=== PATIENT | female | born 1960 | race Caucasian/White ===

== ENCOUNTER 2017-10-13 19:37 | Emergency (ER) | payer SELFPAY ==
[2017-10-13 20:58] LABS: BASO # 0.1 10^3/uL (0.0-0.2); BASO % 1.2 % (0.0-1.0); EOS # 0.2 10^3/uL (0.0-0.50); EOS % 2.9 % (0.0-3.0); HEMATOCRIT 35.3 % (36.0-47.0); HEMOGLOBIN 12.2 g/dl (12.0-15.5); IMMATURE GRANULOCYTE % 0.2 % (0-3.0); LYMPH % 38.6 % (24.0-44.0); MEAN CORPUSCULAR HEMOGLOBIN 33.6 pg (27.0-33.0); MEAN CORPUSCULAR HGB CONC 34.6 g/dl (32.0-36.5); MEAN CORPUSCULAR VOLUME 97.2 fl (80.0-96.0); MONO # 0.7 10^3/uL (0.0-0.8); MONO % 12.5 % (0.0-5.0); NEUTROPHILS # 2.3 10^3/uL (1.8-7.7); NEUTROPHILS % 44.6 % (36.0-66.0); PLATELET COUNT, AUTOMATED 179 10^3/uL (150-450); RED BLOOD COUNT 3.63 10^6/uL (4.00-5.40); RED CELL DISTRIBUTION WIDTH 13.4 % (11.5-14.5); WHITE BLOOD COUNT 5.2 10^3/uL (4.0-10.0)
[2017-10-13] MEDS: MORPHINE 4 MG/ML 1ML VIAL/SYRINGE (J2270) IV (21:00)
[2017-10-13 21:09] LABS: INR 0.98; PROTHROMBIN TIME 13.1 SECONDS (12.4-14.5)
[2017-10-13 21:10] LABS: PARTIAL THROMBOPLASTIN TIME 29.2 SECONDS (26.8-37.9)
[2017-10-13 21:12] LABS: ANION GAP 10 MEQ/L (8-16); BLOOD UREA NITROGEN 19 MG/DL (7-18); CARBON DIOXIDE LEVEL 25 MEQ/L (21-32); CHLORIDE LEVEL 107 MEQ/L (98-107); CK-MB VALUE MASS 1.5 NG/ML (<3.6); CPK CREATINE PHOSPHOKINASE 74 U/L (26-192); CREATININE FOR GFR 0.76 MG/DL (0.55-1.30); ETHYL ALCOHOL (ETHANOL) 0.179 % (0.000-0.010); GLOMERULAR FILTRATION RATE > 60.0 (>51); GLUCOSE, FASTING 88 MG/DL (70-100); MB/CK RELATIVE INDEX 2.02 (< OR =4); POTASSIUM SERUM 3.6 MEQ/L (3.5-5.1); SODIUM LEVEL 142 MEQ/L (136-145); TROPONIN I < 0.02 NG/ML (< 0.10)
[2017-10-13] MEDS: KETOROLAC 30 MG/ML VIAL (J1885) IV (21:40)
[2017-10-13] MEDS ORDERED: ISOVUE-370 76% 100ML VIAL (Q9967) As Ordered (21:58)
== END 2017-10-14 01:14 | disposition home or self-care (01) ==
LOC: M ED 10-14 01:14
DX: R07.89 Other chest pain (principal); F10.929 Alcohol use, unspecified with intoxication, unspecified; R94.31 Abnormal electrocardiogram [ECG] [EKG]; I83.90 Asymptomatic varicose veins of unspecified lower extremity; F17.200 Nicotine dependence, unspecified, uncomplicated
CPT/HCPCS: Q9967

== ENCOUNTER 2020-09-22 05:56 | Day surgery (SDC) | payer BC, SELFPAY ==
[~2020-09-22] VITALS: Ht 180.3 cm; Wt 55.0 kg
[2020-09-22] MEDS ORDERED: GLUCAGON INJ 1MG VIAL IV STA (07:12)
[2020-09-22] MEDS ORDERED: LORazepam 2 MG/ML VIAL IV STA (07:25)
[2020-09-22 07:47] LABS: BASO % 0.8 % (0.0-1.0); EOS % 0.5 % (0.0-3.0); HEMATOCRIT 41.7 % (36.0-47.0); HEMOGLOBIN 14.2 g/dl (12.0-15.5); LYMPH # 0.8 10^3/uL (1.5-5.0); LYMPH % 20.8 % (24.0-44.0); MEAN CORPUSCULAR HEMOGLOBIN 33.9 pg (27.0-33.0); MEAN CORPUSCULAR HGB CONC 34.1 g/dl (32.0-36.5); MEAN CORPUSCULAR VOLUME 99.5 fl (80.0-96.0); MONO # 0.6 10^3/uL (0.0-0.8); MONO % 13.8 % (2.0-8.0); NEUTROPHILS # 2.5 10^3/uL (1.5-8.5); NEUTROPHILS % 63.6 % (36.0-66.0); PLATELET COUNT, AUTOMATED 155 10^3/uL (150-450); RED BLOOD COUNT 4.19 10^6/uL (4.00-5.40)
[2020-09-22 08:19] LABS: BLOOD UREA NITROGEN 12 MG/DL (7-18); CALCIUM LEVEL 9.1 MG/DL (8.5-10.1); CARBON DIOXIDE LEVEL 25 MEQ/L (21-32); CHLORIDE LEVEL 105 MEQ/L (98-107); GLOMERULAR FILTRATION RATE > 60.0 (>51); GLUCOSE, FASTING 101 MG/DL (70-100); POTASSIUM SERUM 3.7 MEQ/L (3.5-5.1); SODIUM LEVEL 137 MEQ/L (136-145)
[2020-09-22 08:38] LABS: RSV AMPLIFICATION NEGATIVE (NEGATIVE)
--- NOTE | 2020-09-22 08:40 | REP ---
INDICATION: pre-op COMPARISON: 10/13/2017 TECHNIQUE: Portable AP view of the chest FINDINGS: The mediastinum and cardiac silhouette are stable and within normal limits for portable technique. The lung muse are clear without acute consolidation, effusion, or pneumothorax. Skeletal structures are intact. IMPRESSION: No acute cardiopulmonary process appreciated. <Electronically signed by Mahesh Soto > 09/22/20 [id number]
[2020-09-22] MEDS ORDERED: hydrALAZINE 20MG/ML 1ML VIAL (J0360 PER 20MG) IV ONE (08:45)
[2020-09-22] MEDS ORDERED: hydrALAZINE 20MG/ML 1ML VIAL (J0360 PER 20MG) IV STA (09:31)
[2020-09-22 09:36] VITALS: BP 193/100
[2020-09-22] MEDS ORDERED: NS 1,000 ML IV SCH (10:05)
[2020-09-22] MEDS ORDERED: MIDAZOLAM INJ 2MG/2ML VIAL (J2250 PER 1MG) As Ordered ONE (10:36)
[2020-09-22] MEDS ORDERED: fentaNYL 100 MCG/2 ML INJECTION (J3010) As Ordered ONE (10:36)
[2020-09-22] MEDS ORDERED: propofoL 200 MG/20 ML VIAL As Ordered ONE (10:36)
[2020-09-22] MEDS ORDERED: LIDOCAINE 2% 100MG/5ML SDV (FOR ANES.) As Ordered ONE (10:36)
[2020-09-22] MEDS ORDERED: ONDANSETRON 4MG/2ML VIAL As Ordered ONE (10:37)
[2020-09-22] MEDS ORDERED: ROCURONIUM BROMIDE 50 MG/5 ML VIAL As Ordered ONE (10:37)
[2020-09-22] MEDS ORDERED: dexameTHASONE 4 MG/ML 1ML VIAL (J1100 PER 1MG) As Ordered ONE (10:37)
[2020-09-22] MEDS ORDERED: GLYCOPYRROLATE INJ 0.2 MG/ML 2 ML VIAL As Ordered ONE (12:09)
[2020-09-22] MEDS ORDERED: SUGAMMADEX SODIUM 500 MG/5 ML VIAL (BRIDION) As Ordered ONE (12:27)
[2020-09-22] MEDS ORDERED: METOCLOPRAMIDE INJ 10MG/2ML VIAL (J2765 PER 1) As Ordered ONE (12:33)
--- NOTE | 2020-09-22 12:51 | ROOR ---
Patient Name: Ary Layne Procedure Date: 09/22/2020 10:59 AM Date of : 1960 Age: 59 Gender: Female Note Status: Finalized Procedure: Upper GI endoscopy Indications: Foreign body in the esophagus Providers: Chalo Escobar MD Referring MD: 3. Emergency Dept 3. Emergency Dept Requesting Provider: Medicines: Monitored Anesthesia Care Complications: No immediate complications. Procedure: Pre-Anesthesia Assessment: - The heart rate, respiratory rate, oxygen saturations, blood pressure, adequacy of pulmonary ventilation, and response to care were monitored throughout the procedure. The Endoscope was introduced through the mouth, and advanced to the second part of duodenum. The upper GI endoscopy was accomplished without difficulty. The patient tolerated the procedure well. Findings: Food was found in the middle third of the esophagus. Removal of food was accomplished. Mildly severe esophagitis with no bleeding was found in the mid esophagus. Biopsies were taken with a cold forceps for histology. No endoscopic abnormality was evident in the esophagus to explain the patient's complaint of dysphagia. Small Hiatal Hernia. The entire examined stomach was normal. The examined duodenum was normal. Impression: - Food in the middle third of the esophagus. Removal was successful. - No endoscopic esophageal abnormality to explain patient's food impaction. - Mildly severe esophagitis mid esophagus (likely related to food bolus irritation). Biopsied. - Small Hiatal Hernia. - Normal stomach. - Normal examined duodenum. Recommendation: - Observe patient's clinical course. - Telephone endoscopist for pathology results in 2 weeks. Procedure Code(s): --- Professional --- 60830, Esophagogastroduodenoscopy, flexible, transoral; with removal of foreign body(s) 54628, Esophagogastroduodenoscopy, flexible, transoral; with biopsy, single or multiple Diagnosis Code(s): --- Professional --- T18.108A, Unspecified foreign body in esophagus causing other injury, initial encounter R13.10, Dysphagia, unspecified K20.9, Esophagitis, unspecified T18.128A, Food in esophagus causing other injury, initial encounter CPT copyright 2019 [employer]. All rights reserved. The codes documented in this report are preliminary and upon oil well perforator operator review may be revised to meet current compliance requirements. Chalo Escobar MD Chalo Escobar MD 09/22/2020 12:51:25 PM Electronically signed by Chalo Escobar MD Number of Addenda: 0 Note Initiated On: 09/22/2020 10:59 AM Estimated Blood Loss: Estimated blood loss: none.
[2020-09-22] MEDS ORDERED: ONDANSETRON 4MG/2ML VIAL IV PRN (13:10)
[2020-09-22] MEDS ORDERED: fentaNYL 100 MCG/2 ML INJECTION (J3010) IV PRN (13:10)
[2020-09-22] MEDS ORDERED: LR 1,000 ML IV SCH (13:10)
[2020-09-22 13:22] VITALS: BP 129/76
--- NOTE | 2020-09-22 20:06 | ECGEPIP ---
[facility] - ED Test Date: 2020-09-22 Pat Name: JENNIFER CALVO Department: Room: - Gender: Female Internet Marketing Coordinator: DENISHA : 1960 Requested By: Rodrick Edwards Order Number: [id number] Reading MD: Chalo Vasquez Measurements Intervals [place] Rate: 88 P: 79 [place]: 176 QRS: 77 QRSD: 76 T: 68 QT: 420 QTc: 508 Interpretive Statements Normal sinus rhythm Possible Left atrial enlargement Minimal voltage criteria for LVH, may be normal variant Prolonged QTc interval new from tracing done 10-13-17 Electronically Signed on 09-22-2020 20:06:52 EDT by Chalo Vasquez
== END 2020-09-22 13:39 | disposition home or self-care (01) ==
LOC: M ED 05:56 → M SDC 11:55
PROVIDERS: ATTEND Emergency Medicine
DX: T18.128A Food in esophagus causing other injury, initial encounter (principal); Y92.89 Other specified places as the place of occurrence of the external cause; B37.81 Candidal esophagitis; K44.9 Diaphragmatic hernia without obstruction or gangrene; R13.10 Dysphagia, unspecified; I10 Essential (primary) hypertension; F17.200 Nicotine dependence, unspecified, uncomplicated; Z79.899 Other long term (current) drug therapy
CPT/HCPCS: 43239; 43247; 71045; 80048; 85025; 87631; 88305; 88313; 93005; 96361; 96374; 96375; 96376; 99285; J0360; J1100; J1610; J2060; J2250; J2405; J2765; J3010

== ENCOUNTER 2024-05-14 10:45 | Observation (INO) | payer BC, MEDICARE, OTHER ==
[~2024-05-14] VITALS: Ht 180.3 cm; Wt 53.6 kg
[2024-05-14] MEDS ORDERED: ISOVUE-370 76% 100ML VIAL As Ordered ONE (11:20)
[2024-05-14 11:34] LABS: BASO # 0.1 10^3/uL (0.0-0.2); BASO % 0.7 % (0.0-1.0); EOS # 0.1 10^3/uL (0.0-0.5); EOS % 1.2 % (0.0-3.0); HEMATOCRIT 35.4 % (36.0-47.0); LYMPH % 14.4 % (24.0-44.0); MEAN CORPUSCULAR HEMOGLOBIN 32.7 pg (27.0-33.0); MEAN CORPUSCULAR HGB CONC 33.9 g/dl (32.0-36.5); MEAN CORPUSCULAR VOLUME 96.5 fl (80.0-96.0); MONO # 0.4 10^3/uL (0.0-0.8); MONO % 5.7 % (2.0-8.0); NEUTROPHILS # 5.6 10^3/uL (1.5-8.5); NEUTROPHILS % 77.4 % (36.0-66.0); PLATELET COUNT, AUTOMATED 222 10^3/uL (150-450); RED BLOOD COUNT 3.67 10^6/uL (4.00-5.40); WHITE BLOOD COUNT 7.2 10^3/uL (4.0-10.0)
[2024-05-14] MEDS: NS 500 ML IV ONE ×3 (11:35→21:11)
[2024-05-14] MEDS: MORPHINE 2 MG/ML 1ML VIAL IV PRN (11:36)
[2024-05-14] MEDS: ONDANSETRON 4MG 2ML VIAL IV ONE (11:36)
[2024-05-14 11:41] LABS: INR 1.02; PARTIAL THROMBOPLASTIN TIME 28.4 SECONDS (24.8-34.2); PROTHROMBIN TIME 13.7 SECONDS (12.5-14.5)
[2024-05-14 11:51] LABS: LIPASE 64 U/L (12-53)
[2024-05-14 11:52] LABS: AMYLASE 145 U/L (30-118); CK-MB VALUE MASS 3.5 NG/ML (<3.6)
[2024-05-14 11:53] LABS: ALKALINE PHOSPHATASE 174 U/L (35-104); ALT/SGPT 52 U/L (7.0-40); AST/SGOT 232 U/L (<34); BILIRUBIN,DIRECT 0.5 MG/DL (<0.4); BILIRUBIN,TOTAL 0.9 MG/DL (0.3-1.2); BLOOD UREA NITROGEN 28 MG/DL (9-23); CALCIUM LEVEL 8.6 MG/DL (8.3-10.6); CARBON DIOXIDE LEVEL 24 MMOL/L (20-31); CHLORIDE LEVEL 107 MMOL/L (98-107); CPK CREATINE PHOSPHOKINASE 95 U/L (34-145); GLOMERULAR FILTRATION RATE > 60.0 (>45); GLUCOSE, FASTING 106 MG/DL (74-106); MB/CK RELATIVE INDEX 3.68 (< OR =4); SODIUM LEVEL 137 MMOL/L (136-145)
[2024-05-14] MEDS: KETOROLAC 30 MG/ML 1ML VIAL IV ONE (12:47)
[2024-05-14] MEDS: MORPHINE 2 MG/ML 1ML VIAL IV ONE (12:55)
[2024-05-14 13:21] LABS: CK-MB VALUE MASS 2.2 NG/ML (<3.6)
[2024-05-14 13:30] LABS: MB/CK RELATIVE INDEX 2.58 (< OR =4)
[2024-05-14] MEDS ORDERED: CAPTOpril 6.25 MG PER 1/2 TABLET PO SCH (14:00)
[2024-05-14] MEDS: PIPERACILLIN/TAZOBACTAM SOD 4.5 GM in DEXTROSE 5% (D5W) ADV/MINI-BAG 50 ML IV ONE (15:02)
[2024-05-14] MEDS: LABETALOL 100MG/20ML VIAL IV STA (15:17)
[2024-05-14] MEDS ORDERED: MOM 30ML SUSPENSION UDC PO PRN (16:15)
[2024-05-14] MEDS ORDERED: HOME MED LIST COMPLETE! XX SCH (16:20)
[2024-05-14] MEDS ORDERED: LORazepam 2 MG TAB PO PRN (16:25)
[2024-05-14] MEDS ORDERED: ONDANSETRON 4MG 2ML VIAL IV PRN (16:35)
[2024-05-14] MEDS: FOLIC ACID 1MG TAB PO SCH (17:07)
[2024-05-14] MEDS: cloNIDine 0.1MG TABLET PO SCH (17:08)
[2024-05-14] MEDS: MULTIVITAMINS/MINERALS THERAP 1 TAB PO SCH (17:08)
[2024-05-14 17:30] LABS: HEPATITIS B SURFACE ANTIGEN NEGATIVE (NEGATIVE)
[2024-05-14 17:51] LABS: HEPATITIS C VIRUS ABY INDEX 0.06 INDEX (<0.8)
[2024-05-14 17:52] LABS: HEPATITIS B CORE ANTIBODY IGM NEGATIVE (NEGATIVE)
[2024-05-14 18:00] VITALS: BP 130/72; TEMP 97.6; O2SAT 98
[2024-05-14] MEDS ORDERED: LORazepam 1 MG TAB PO PRN (18:45)
[2024-05-14] MEDS: NICOTINE 21MG/24HR 1 EA TRANSDERMAL TD SCH (19:54)
[2024-05-14 20:04] VITALS: BP 90/58; TEMP 97.3; O2SAT 98
[2024-05-14] MEDS: PIPERACILLIN/TAZOBACTAM SOD 3.375 GM in DEXTROSE 5% (D5W) ADV/MINI-BAG 50 ML IV SCH (20:33)
[2024-05-14] MEDS: DOCUSATE SODIUM 100MG CAPSULE PO SCH (20:33)
[2024-05-14] MEDS: THIAMINE 100 MG TAB PO SCH (20:33)
[2024-05-14 21:08] VITALS: BP 106/62; TEMP 97.6; O2SAT 98
[2024-05-14 21:52] VITALS: BP 112/70
[2024-05-14 23:16] VITALS: BP 120/67; TEMP 97.2; O2SAT 98
[2024-05-15] VITALS (14 sets, daily range): BP systolic 120–195; BP diastolic 66–102; TEMP 96.2–97.7; O2SAT 98–100
[2024-05-15] MEDS: HEPARIN SOD (PORCINE) 5000UNITS/ML 1ML VIAL/SYRINGE SC SCH (05:05)
[2024-05-15] MEDS ORDERED: cloNIDine 0.2 MG TAB PO SCH (06:00)
[2024-05-15 07:17] LABS: HEMATOCRIT 33.8 % (36.0-47.0); HEMOGLOBIN 11.6 g/dl (12.0-15.5); MEAN CORPUSCULAR HEMOGLOBIN 33.4 pg (27.0-33.0); MEAN CORPUSCULAR HGB CONC 34.3 g/dl (32.0-36.5); MEAN CORPUSCULAR VOLUME 97.4 fl (80.0-96.0); PLATELET COUNT, AUTOMATED 205 10^3/uL (150-450); RED BLOOD COUNT 3.47 10^6/uL (4.00-5.40); WHITE BLOOD COUNT 3.9 10^3/uL (4.0-10.0)
[2024-05-15 07:49] LABS: ALBUMIN 2.6 G/DL (3.2-5.2); ALKALINE PHOSPHATASE 147 U/L (35-104); ALT/SGPT 76 U/L (7.0-40); AST/SGOT 180 U/L (<34); BILIRUBIN,DIRECT 0.4 MG/DL (<0.4); BILIRUBIN,TOTAL 0.9 MG/DL (0.3-1.2); BLOOD UREA NITROGEN 21 MG/DL (9-23); CARBON DIOXIDE LEVEL 24 MMOL/L (20-31); CHLORIDE LEVEL 110 MMOL/L (98-107); CREATININE FOR GFR 0.93 MG/DL (0.55-1.30); GLOMERULAR FILTRATION RATE > 60.0 (>45); GLUCOSE, FASTING 91 MG/DL (74-106); POTASSIUM SERUM 4.1 MMOL/L (3.5-5.1); SODIUM LEVEL 139 MMOL/L (136-145); TOTAL PROTEIN 7.2 G/DL (5.7-8.2)
[2024-05-15 08:05] LABS: KETONE, URINE AUTO RFX NEGATIVE (NEGATIVE); MUCUS, URINE RFX SMALL (NEGATIVE); NITRITE, URINE AUTO RFX NEGATIVE (NEGATIVE); RBC, URINE AUTO RFX 1 /HPF (0-3); SQUAM EPITHELIAL CELL UR AURFX 0 /HPF (0-6); WBC, URINE AUTO RFX 3 /HPF (0-3)
[2024-05-15 08:07] LABS: LEUKOCYTE ESTERASE UR AUTO RFX 2+ (NEGATIVE)
[2024-05-15] MEDS: ACETAMINOPHEN 325 MG TAB PO PRN (10:08)
[2024-05-15] MEDS ORDERED: fentaNYL 100 MCG/2 ML INJECTION As Ordered ONE (11:22)
[2024-05-15] MEDS ORDERED: ONDANSETRON 4MG 2ML VIAL As Ordered ONE (11:23)
[2024-05-15] MEDS ORDERED: SUGAMMADEX SODIUM 500 MG/5 ML VIAL (BRIDION) As Ordered ONE (11:23)
[2024-05-15] MEDS ORDERED: MIDAZOLAM INJ 2MG/2ML VIAL As Ordered ONE (11:23)
[2024-05-15] MEDS ORDERED: propofoL 200 MG/20 ML VIAL As Ordered ONE (11:23)
[2024-05-15] MEDS ORDERED: ACETAMINOPHEN 1000MG/100ML IV BAG As Ordered ONE (11:23)
[2024-05-15] MEDS ORDERED: LIDOCAINE 2% 100MG/5ML SDV (FOR ANES.) As Ordered ONE (11:23)
[2024-05-15] MEDS ORDERED: ROCURONIUM BROMIDE 50MG/5ML VIAL As Ordered ONE (11:23)
[2024-05-15] MEDS ORDERED: INDOCYANINE GREEN 25MG VIAL (IC-GREEN) As Ordered ONE (11:55)
[2024-05-15] MEDS ORDERED: hydrALAZINE 20MG/ML 1ML VIAL As Ordered ONE (13:49)
[2024-05-15] MEDS ORDERED: KETOROLAC 60MG 2ML VIAL As Ordered ONE (14:07)
[2024-05-15] MEDS ORDERED: fentaNYL 100 MCG/2 ML INJECTION IV PRN (14:20)
[2024-05-15] MEDS ORDERED: ONDANSETRON 4MG 2ML VIAL IV PRN (14:20)
[2024-05-15] MEDS ORDERED: HYDROMORPHONE HCL 0.5 MG/ 0.5 ML SYRINGE IV PRN (14:20)
[2024-05-15] MEDS: oxyCODONE 5MG TAB PO PRN (14:45)
[2024-05-15] MEDS: IPRATROPIUM 0.5MG/ALBUTEROL 2.5MG INH SOL UD 3ML (DUONEB) NEB ONE (15:57)
[2024-05-15] MEDS: CAPTOpril 6.25 MG PER 1/2 TABLET PO SCH (16:13)
[2024-05-15] MEDS: KETOROLAC 30 MG/ML 1ML VIAL IV PRN (20:01)
[2024-05-15] MEDS: ACETAMINOPHEN *IV* 1,000 MG in IV 1 EA IV ONE (21:51)
[2024-05-16] VITALS (7 sets, daily range): BP systolic 118–178; BP diastolic 58–80; TEMP 97.1–97.6; O2SAT 96–100
[2024-05-16] MEDS: MORPHINE 2 MG/ML 1ML VIAL IV ONE (03:38)
[2024-05-16] MEDS: KETOROLAC 30 MG/ML 1ML VIAL IV PRN (04:14)
[2024-05-16] MEDS ORDERED: KETO10TAB PO (15:18)
[2024-05-16] MEDS ORDERED: FOLI1TAB11 PO (15:18)
[2024-05-16] MEDS ORDERED: THIA100TA PO (15:18)
[2024-05-16] MEDS ORDERED: CAPT62TA PO (15:18)
[2024-05-16] MEDS: **hydrALAZINE** 10 MG TAB PO STA (16:41)
[2024-05-16] MEDS ORDERED: HYDR-161 PO (17:51)
[2024-05-16] MEDS ORDERED: BLOOKIT XX (17:55)
[2024-05-16] MEDS ORDERED: **hydrALAZINE** 10 MG TAB PO SCH (21:00)
== END 2024-05-16 18:22 | disposition home or self-care (01) ==
LOC: EDBD 10:45 → M ED 10:45 → M ED INP 10:46 → M MS4PR 18:00
PROVIDERS: ADMIT Student in an Organized Health Care Education/Training Program; ATTEND Student in an Organized Health Care Education/Training Program
DX: K80.10 Calculus of gallbladder with chronic cholecystitis without obstruction (principal); K74.60 Unspecified cirrhosis of liver; K82.8 Other specified diseases of gallbladder; R10.11 Right upper quadrant pain; R55 Syncope and collapse; I10 Essential (primary) hypertension; R74.01 Elevation of levels of liver transaminase levels; K76.0 Fatty (change of) liver, not elsewhere classified; F10.90 Alcohol use, unspecified, uncomplicated; F17.210 Nicotine dependence, cigarettes, uncomplicated; I95.9 Hypotension, unspecified; Z90.79 Acquired absence of other genital organ(s); Z98.891 History of uterine scar from previous surgery
CPT/HCPCS: 36415; 47563; 71045; 74177; 76705; 80047; 80048; 80074; 80076; 81001; 82150; 82550; 82553; 83605; 83690; 84484; 85025; 85027; 85610; 85730; 86850; 86900; 86901; 87040; 87086; 88304; 93005; 93041; 96365; 96366; 96372; 96375; 96376; 99285; J0131; J0360; J0665; J1100; J1885; J1920; J2250; J2405; J2543; J3010; Q9967; Q9968; S2900

== ENCOUNTER → 2024-06-08 | Outpatient (REF) | payer OTHER ==
[~2024-06-08] MED LIST: BLOOKIT XX; CAPT62TA PO; FOLI1TAB11 PO; HYDR-161 PO; KETO10TAB PO; THIA100TA PO
[2024-06-08 14:36] LABS: CREATININE, URINE 9.2 MG/DL
[2024-06-08 14:37] LABS: MAU/CREAT RATIO 869.5 MCG/MG (0.0-30.0)
[2024-06-08 14:52] LABS: THYROID STIMULATING HORMONE 0.993 uIU/ML (0.55-4.78)
[2024-06-08 14:53] LABS: TOTAL 25(OH) VITAMIN D 14.2 NG/ML (20.0-100.0)
[2024-06-08 15:17] LABS: HIV 1&2 SCREEN NEGATIVE (NEGATIVE)
[2024-06-08 15:26] LABS: HEMOGLOBIN A1c 4.7 % (4.0-6.0)
[2024-06-08 15:27] LABS: ALBUMIN 3.5 G/DL (3.2-5.2); ALKALINE PHOSPHATASE 103 U/L (35-104); ALT/SGPT 27 U/L (7.0-40); AST/SGOT 50 U/L (<34); BILIRUBIN,TOTAL 0.6 MG/DL (0.3-1.2); BLOOD UREA NITROGEN 18 MG/DL (9-23); CALCIUM LEVEL 9.8 MG/DL (8.3-10.6); CARBON DIOXIDE LEVEL 27 MMOL/L (20-31); CHLORIDE LEVEL 104 MMOL/L (98-107); CHOLESTEROL LEVEL 169 MG/DL (<200); CHOLESTEROL RISK RATIO 3.78 (<5); CREATININE FOR GFR 0.69 MG/DL (0.55-1.30); GLOMERULAR FILTRATION RATE > 60.0 (>45); GLUCOSE, FASTING 88 MG/DL (74-106); HDL CHOLESTEROL 44.7 MG/DL (>40); LDL CHOLESTEROL 102.5 MG/DL (<100); NON-HDL-C 124.3 MG/DL; POTASSIUM SERUM 4.1 MMOL/L (3.5-5.1); SODIUM LEVEL 138 MMOL/L (136-145); TOTAL PROTEIN 9.4 G/DL (5.7-8.2); TRIGLYCERIDES LEVEL 109 MG/DL (<150)
== END ==
LOC: M LAB REF 12:26
PROVIDERS: ATTEND Physician Assistant
DX: E55.9 Vitamin D deficiency, unspecified (principal); I10 Essential (primary) hypertension; R32 Unspecified urinary incontinence; Z11.9 Encounter for screening for infectious and parasitic diseases, unspecified

== ENCOUNTER → 2024-06-14 | Outpatient (CLI) | payer OTHER | LOC: M LAB 09:55 | PROVIDERS: ATTEND Physician Assistant | DX: E55.9 Vitamin D deficiency, unspecified (principal) ==

== ENCOUNTER → 2024-08-20 | Outpatient (REF) | payer OTHER | LOC: M LAB REF 12:10 | PROVIDERS: ATTEND Physician Assistant | DX: E55.9 Vitamin D deficiency, unspecified (principal) ==